=== PATIENT | male | born 1975 | race Caucasian/White ===

== ENCOUNTER 2018-08-04 12:58 | Emergency (ER) | payer OTHER ==
[~2018-08-04] VITALS: Ht 175.3 cm; Wt 77.1 kg
[2018-08-04 14:29] LABS: Basophils # (auto) 0.1 uL; Eosinophils # (auto) 0 uL; Eosinophils % (auto) 0.5 % (0.0-7.0); Mean Corpuscular Volume 99.7 fL (80.0-100.0); Monocytes # (auto) 0.3 uL; Nucleated Red Blood Cells % 0.2 %; White Blood Cell 4.5 10^3/uL (4.4-10.8)
[2018-08-04 14:33] LABS: Basophils % (auto) 2.3 % (0.0-2.0); Hematocrit 49.3 % (41.0-53.0); Hemoglobin 17.3 g/dL (13.5-17.5); Lymphocytes % (auto) 22.7 % (10.0-50.0); Mean Corpuscular Hgb Conc. 35.1 g/dL (32.0-36.0); Monocytes % (auto) 7.8 % (0.0-12.0); Neutrophils % (auto) 66.7 % (37.0-80.0); Platelet Count (auto) 164 10^3/uL (140-450); Red Blood Cells 4.95 10^6/uL (4.5-5.90); Red Cell Distribution Width 13.2 % (11.8-14.3)
[2018-08-04 14:46] LABS: Albumin 4.3 g/dL (3.4-5.0); BUN/Creatinine Ratio 12.3; Calcium 8.3 mg/dL (8.5-10.1); Potassium 3.7 mmol/L (3.5-5.1)
[2018-08-04 14:52] LABS: Amphetamine Screen, Urine NEGATIVE (NEGATIVE); Barbiturate Scree,Urine NEGATIVE (NEGATIVE); Benzodiazephine Screen, Urine NEGATIVE (NEGATIVE); Cannabinoid Screen, Urine POSITIVE (NEGATIVE); Cocaine Screen, Urine NEGATIVE (NEGATIVE); Opiate Scree,Urine NEGATIVE (NEGATIVE); Phencyclidine Screen, Urine NEGATIVE (NEGATIVE)
[2018-08-04 14:54] LABS: Urine Bacteria NONE SEEN /hpf (None Seen); Urine Blood Negative /uL (Negative); Urine Mucus FEW (None Seen); Urine Specific Gravity 1.009 (1.001-1.035); Urine WBC <1 /hpf (0 - 3)
[2018-08-04 15:00] LABS: Bilirubin, Total 0.7 mg/dL (0.2-1.0); Total Protein 8.3 g/dL (6.4-8.2)
[2018-08-04] MEDS: SODIUM CHLORIDE 0.9% 1,000 ML IV ONE ×3 (15:01→17:02)
[2018-08-04] MEDS: THIAMINE 100mg/ml INJ (200mg/2ml VIAL) IV ONE (15:08)
[2018-08-04] MEDS: chlordiazePOXIDE HCL 5 MG CAP PO ONE (15:08)
[2018-08-04 17:08] VITALS: BP 128/72
== END 2018-08-04 17:30 | disposition home or self-care (01) ==
LOC: ER 12:58
DX: F10.120 Alcohol abuse with intoxication, uncomplicated (principal); F17.210 Nicotine dependence, cigarettes, uncomplicated; F12.10 Cannabis abuse, uncomplicated
CPT/HCPCS: 36415; 80053; 80307; 80320; 81001; 85025; 93005; 94761; 96374; 99285; J3411; J7030

== ENCOUNTER 2021-10-15 14:43 | Emergency (ER) | payer MEDICAID ==
[~2021-10-15] VITALS: Ht 177.8 cm; Wt 79.4 kg
[2021-10-15 15:23] VITALS: BP 145/100
[2021-10-15] MEDS ORDERED: LORazepam 2MG/ML-1ML VIAL IV ONE (15:45)
[2021-10-15] MEDS ORDERED: SODIUM CHLORIDE 0.9% 1,000 ML IV ONE (15:45)
[2021-10-15] MEDS ORDERED: ONDANSETRON HCL 4 MG/2 ML VIAL IV ONE (15:45)
[2021-10-15 17:24] LABS: Albumin 4.7 g/dL (3.4-5.0); Calcium 8.8 mg/dL (8.5-10.1)
[2021-10-15 17:27] LABS: Bilirubin, Total 0.6 mg/dL (0.2-1.0); Total Protein 7.9 g/dL (6.4-8.2)
== END 2021-10-15 18:48 | disposition home or self-care (01) ==
LOC: ER 14:43
DX: F10.230 Alcohol dependence with withdrawal, uncomplicated (principal); F17.210 Nicotine dependence, cigarettes, uncomplicated; Z20.822 Contact with and (suspected) exposure to COVID-19; Y90.8 Blood alcohol level of 240 mg/100 ml or more
CPT/HCPCS: 36415; 80053; 80320; 87426; 96361; 96374; 96375; 99284; J2060; J2405; J7030

== ENCOUNTER 2022-06-04 17:08 | Emergency (ER) | payer MEDICAID ==
[~2022-06-04] VITALS: Ht 177.8 cm; Wt 81.0 kg
[2022-06-04 18:05] LABS: Basophils # (auto) 0.1 10 ^3/uL (0-0.2); Eosinophils # (auto) 0 10 ^3/uL (0-0.8); Eosinophils % (auto) 0.1 % (0.0-7.0); Hematocrit 47.7 % (41.0-53.0); Hemoglobin 15.9 g/dL (13.5-17.5); Lymphocytes # (auto) 1.6 10 ^3/uL (0.4-5.4); Lymphocytes % (auto) 17.3 % (10.0-50.0); Mean Corpuscular Hemoglobin 31.4 pg (28.0-32.0); Mean Corpuscular Hgb Conc. 33.3 g/dL (32.0-36.0); Mean Corpuscular Volume 94.3 fL (80.0-100.0); Monocytes # (auto) 0.8 10 ^3/uL (0-1.3); Monocytes % (auto) 8.2 % (0.0-12.0); Neutrophils # (auto) 6.9 10 ^3/uL (1.6-8.6); Neutrophils % (auto) 73.4 % (37.0-80.0); Red Blood Cells 5.06 10^6/uL (4.5-5.90); Red Cell Distribution Width 12.9 % (11.8-14.3); White Blood Cell 9.4 10^3/uL (4.4-10.8)
[2022-06-04 18:25] LABS: Albumin 4.9 g/dL (3.4-5.0); BUN/Creatinine Ratio 20.3; Calcium 10.1 mg/dL (8.5-10.1); Potassium 3.6 mmol/L (3.5-5.1)
[2022-06-04 18:36] LABS: Bilirubin, Total 1.5 mg/dL (0.2-1.0); Total Protein 8.1 g/dL (6.4-8.2)
[2022-06-04] MEDS ORDERED: chlordiazePOXIDE HCL 25 MG CAP PO ONE (21:45)
[2022-06-04] MEDS ORDERED: SODIUM CHLORIDE 0.9% 1,000 ML IV ONE (21:45)
[2022-06-05] MEDS ORDERED: CHL10C PO (00:57)
[2022-06-05 01:01] VITALS: BP 108/78
== END 2022-06-05 01:01 | disposition home or self-care (01) ==
LOC: ER 17:08
DX: F10.239 Alcohol dependence with withdrawal, unspecified (principal); F17.210 Nicotine dependence, cigarettes, uncomplicated; F12.10 Cannabis abuse, uncomplicated
CPT/HCPCS: 36415; 71045; 80053; 84484; 85025; 93005; 96360; 99285; J7030

== ENCOUNTER 2022-10-14 09:11 | Inpatient (IN) | payer MEDICAID ==
[~2022-10-14] VITALS: Ht 175.3 cm; Wt 84.3 kg
[~2022-10-14 09:11] MED LIST: CHL10C PO
[2022-10-14 10:28] LABS: Urine Bacteria FEW /hpf (None Seen); Urine Blood Negative /uL (Negative); Urine Hyaline Cast MANY /lpf (0 - 2); Urine Mucus FEW (None Seen); Urine WBC 5 /hpf (0 - 3)
[2022-10-14] MEDS ORDERED: cefTRIAXone 1GM/50ML D5W 50 ML IV ONE (13:30)
[2022-10-14] MEDS ORDERED: AZITHROMYCIN 500MG/ 250ML 250 ML IV ONE (13:30)
[2022-10-14 13:45] LABS: Hematocrit 45.5 % (41.0-53.0); Hemoglobin 15.8 g/dL (13.5-17.5); Mean Corpuscular Hemoglobin 32.9 pg (28.0-32.0); Mean Corpuscular Hgb Conc. 34.8 g/dL (32.0-36.0); Mean Corpuscular Volume 94.6 fL (80.0-100.0); Red Blood Cells 4.81 10^6/uL (4.5-5.90); Red Cell Distribution Width 13.4 % (11.8-14.3); White Blood Cell 24.3 10^3/uL (4.4-10.8)
[2022-10-14 13:57] LABS: Basophils % (manual) 0 (0.0-2.0); Blast Cells 0; Eosinophils % (manual) 0 (0-7); Metamyelocytes % 0; Myelocytes % 0; Promyelocytes % 0; Reactive Lymphocytes 0
[2022-10-14 14:06] LABS: Albumin 2.3 g/dL (3.4-5.0); Calcium 7.9 mg/dL (8.5-10.1); Potassium 4.5 mmol/L (3.5-5.1)
[2022-10-14 14:11] LABS: BUN/Creatinine Ratio 29.2; Bilirubin, Total 0.6 mg/dL (0.2-1.0); Total Protein 6.3 g/dL (6.4-8.2)
[2022-10-14] MEDS ORDERED: CLON0.5T10 PO (14:58)
[2022-10-14] MEDS ORDERED: LISI-716 PO (14:58)
[2022-10-14] MEDS ORDERED: CHLORDIAZEPOXIDE HCL PO SCH (15:00)
[2022-10-14] MEDS ORDERED: SODIUM CHLORIDE 0.9% 2,300 ML IV ONE (15:00)
[2022-10-14] MEDS ORDERED: MORPHINE SULFATE INJ 2 MG/ml SYRG IV PRN (16:00)
[2022-10-14] MEDS ORDERED: HYDROcodone-ACET 5/325MG TAB PO PRN (16:00)
[2022-10-14] MEDS ORDERED: NITROGLYCERIN 0.4 MG SL TAB SL PRN (16:00)
[2022-10-14] MEDS ORDERED: ONDANSETRON HCL 4 MG/2 ML VIAL IV PRN ×2 (16:00→16:30)
[2022-10-14] MEDS ORDERED: ACETAMINOPHEN 325 MG TAB PO PRN (16:00)
[2022-10-14 16:05] LABS: Band Neutrophils % (manual) 76; Lymphocytes % (manual) 4 (10.0-50.0); Monocytes % (manual) 3 (0-12)
[2022-10-14] MEDS ORDERED: ENOXAPARIN SOD 100 MG/1 ML SYRINGE SC ONE (16:15)
[2022-10-14] MEDS ORDERED: metroNIDAZOLE 500MG/100ML 100 ML IV ONE (16:30)
[2022-10-14] MEDS ORDERED: hydrALAZINE HCL 20 MG/ML VL IV PRN (17:00)
[2022-10-14 17:08] LABS: INR 1.28 (0.9-1.15); Partial Thromboplastin Time 39.1 sec (24.6-33.4)
[2022-10-14 17:37] LABS: Blood Alcohol < 3.0 mg/dL (0-5); Cholesterol 62 mg/dL (< 200); Triglycerides 175 mg/dL (< 150)
[2022-10-14 17:40] LABS: HDL Cholesterol 10 mg/dL (40-59); LDL Cholesterol 16 mg/dL (< 100)
[2022-10-14 17:40] LABS: Lactic Acid w/Reflex 2.6 mmol/L (0.4-2.0)
[2022-10-14] MEDS: AZITHROMYCIN 500MG/ 250ML 250 ML IV SCH (19:04)
[2022-10-14] MEDS: SODIUM CHLORIDE 0.9% 1,000 ML IV SCH ×2 (21:10→22:53)
[2022-10-14] MEDS: MORPHINE SULFATE INJ 2 MG/ml SYRG IV PRN (21:22)
[2022-10-14 22:40] VITALS: BP 102/74
[2022-10-14] MEDS: metroNIDAZOLE 500MG/100ML 100 ML IV SCH (22:52)
[2022-10-15 05:00] VITALS: BP 95/65
[2022-10-15] MEDS: metroNIDAZOLE 500MG/100ML 100 ML IV SCH ×3 (05:19→21:19)
[2022-10-15 06:12] LABS: Albumin 1.8 g/dL (3.4-5.0)
[2022-10-15 06:39] LABS: Basophils # (auto) 0.1 10 ^3/uL (0-0.2); Basophils % (auto) 0.7 % (0.0-2.0); Eosinophils # (auto) 0 10 ^3/uL (0-0.8); Eosinophils % (auto) 0.2 % (0.0-7.0); Hematocrit 40.5 % (41.0-53.0); Hemoglobin 13.7 g/dL (13.5-17.5); Lymphocytes # (auto) 0.4 10 ^3/uL (0.4-5.4); Lymphocytes % (auto) 2.5 % (10.0-50.0); Mean Corpuscular Hemoglobin 32.4 pg (28.0-32.0); Mean Corpuscular Volume 95.4 fL (80.0-100.0); Monocytes # (auto) 0.8 10 ^3/uL (0-1.3); Monocytes % (auto) 4.7 % (0.0-12.0); Neutrophils % (auto) 91.9 % (37.0-80.0); Red Blood Cells 4.24 10^6/uL (4.5-5.90); White Blood Cell 17.4 10^3/uL (4.4-10.8)
[2022-10-15 06:56] LABS: BUN/Creatinine Ratio 47.1; Bilirubin, Total 0.5 mg/dL (0.2-1.0); Potassium 3.9 mmol/L (3.5-5.1); Total Protein 6.2 g/dL (6.4-8.2)
[2022-10-15] MEDS: SODIUM CHLORIDE 0.9% 1,000 ML IV SCH ×3 (08:40→23:18)
[2022-10-15 08:47] VITALS: BP 106/68
[2022-10-15] MEDS: THIAMINE HCL 100 MG TAB PO SCH (10:00)
[2022-10-15] MEDS: MULTIPLE VITAMIN TAB PO SCH (10:01)
[2022-10-15 13:00] VITALS: BP 112/81
[2022-10-15] MEDS: MORPHINE SULFATE INJ 2 MG/ml SYRG IV PRN ×2 (14:22→20:15)
[2022-10-15 17:00] VITALS: BP 106/74
[2022-10-15] MEDS: AZITHROMYCIN 500MG/ 250ML 250 ML IV SCH (17:49)
[2022-10-15 22:00] VITALS: BP 113/77
[2022-10-16 05:00] VITALS: BP 127/80
[2022-10-16] MEDS: metroNIDAZOLE 500MG/100ML 100 ML IV SCH (05:33)
[2022-10-16 08:35] VITALS: BP 121/79
[2022-10-16] MEDS: THIAMINE HCL 100 MG TAB PO SCH (09:25)
[2022-10-16] MEDS: MULTIPLE VITAMIN TAB PO SCH (09:25)
[2022-10-16] MEDS: SODIUM CHLORIDE 0.9% 1,000 ML IV SCH (09:25)
[2022-10-16] MEDS ORDERED: ALBUAER3 IN (10:49)
[2022-10-16] MEDS ORDERED: AZIT250T PO (10:49)
[2022-10-16 12:40] VITALS: BP 130/86
[2022-10-16 14:41] VITALS: BP 130/86
[2022-10-16] MEDS ORDERED: AZITHROMYCIN 250 MG TAB PO SCH (17:00)
== END 2022-10-16 15:57 | disposition home or self-care (01) | DRG 139 ==
LOC: EDBD 09:11 → ER 09:11 → TELE 16:04 → TELE-CENTR 22:30
PROVIDERS: ADMIT Registered Nurse; ATTEND Internal Medicine
DX: J18.9 Pneumonia, unspecified organism (principal); E43 Unspecified severe protein-calorie malnutrition; N17.9 Acute kidney failure, unspecified; K70.30 Alcoholic cirrhosis of liver without ascites; I10 Essential (primary) hypertension; R19.7 Diarrhea, unspecified; F41.9 Anxiety disorder, unspecified; R79.89 Other specified abnormal findings of blood chemistry; Z20.822 Contact with and (suspected) exposure to COVID-19; Z71.41 Alcohol abuse counseling and surveillance of alcoholic; Z68.25 Body mass index [BMI] 25.0-25.9, adult
CPT/HCPCS: 36415; 36600; 71046; 74176; 78582; 80053; 80061; 80320; 81001; 82270; 82805; 83036; 83605; 84443; 84484; 85007; 85025; 85027; 85379; 85610; 85730; 87040; 87045; 87070; 87086; 87205; 87426; 87427; 87493; 87804; 96365; 96368; G0378; J0696; J3490

== ENCOUNTER 2023-06-21 15:18 | Inpatient (IN) | payer MEDICAID ==
[~2023-06-21] VITALS: Ht 175.3 cm; Wt 79.5 kg
[~2023-06-21 15:18] MED LIST changes: +ALBUAER3 IN; +AZIT-74 PO; +CLON0.5T4 PO; +LISI10TA34 PO
[2023-06-21 15:42] LABS: Basophils # (auto) 0.1 10 ^3/uL (0-0.2); Basophils % (auto) 1.8 % (0.0-2.0); Eosinophils # (auto) 0.1 10 ^3/uL (0-0.8); Eosinophils % (auto) 0.9 % (0.0-7.0); Hematocrit 44.7 % (41.0-53.0); Hemoglobin 15.6 g/dL (13.5-17.5); Lymphocytes # (auto) 3.1 10 ^3/uL (0.4-5.4); Mean Corpuscular Hemoglobin 33.5 pg (28.0-32.0); Mean Corpuscular Hgb Conc. 34.8 g/dL (32.0-36.0); Mean Corpuscular Volume 96.2 fL (80.0-100.0); Monocytes # (auto) 0.3 10 ^3/uL (0-1.3); Monocytes % (auto) 4.2 % (0.0-12.0); Neutrophils # (auto) 3.4 10 ^3/uL (1.6-8.6); Neutrophils % (auto) 48.1 % (37.0-80.0); Nucleated Red Blood Cells % 0.1 %; Red Blood Cells 4.65 10^6/uL (4.5-5.90); Red Cell Distribution Width 12.6 % (11.8-14.3)
[2023-06-21 15:57] LABS: INR 0.98 (0.9-1.15); Partial Thromboplastin Time 25.4 SEC (24.5-34.5); Prothrombin Time 10.3 sec (9.3-11.8)
[2023-06-21 16:09] VITALS: PULSE 90; RESP 26; O2SAT 95
[2023-06-21 16:17] LABS: Alanine Aminotransferase 37 U/L (7-40); Albumin 4.5 g/dL (3.2-4.8); Alkaline Phosphatase 82 U/L (46-116); Anion Gap 13.9 (5-15); Aspartate Aminotransferase 83 U/L (13-40); BUN/Creatinine Ratio 12.2 (10.0-20.0); Bilirubin, Total 0.5 mg/dL (0.2-1.0); Blood Urea Nitrogen 10 mg/dL (9-23); Calcium 8.6 mg/dL (8.5-10.1); Carbon Dioxide 21.1 mmol/L (20-30); Chloride 104 mmol/L (98-107); Glucose 106 mg/dL (74-106); Magnesium 1.9 mg/dL (1.6-2.6); Potassium 3.7 mmol/L (3.5-5.1); Sodium 139 mmol/L (136-145)
[2023-06-21] MEDS ORDERED: LORazepam 2MG/ML-1ML VIAL IV ONE ×2 (16:30→19:00)
[2023-06-21 16:38] LABS: Acetaminophen < 2.0 UG/ML (10.0-20.0)
[2023-06-21 16:41] LABS: Salicylate < 3.0 mg/dL (2.8-20.0)
[2023-06-21 17:02] LABS: Urine Bacteria NONE SEEN /hpf (None Seen); Urine Blood Negative /uL (Negative); Urine Clarity Clear (Clear); Urine Color Colorless (Yellow); Urine Protein, UAD Negative (Negative); Urine Specific Gravity 1.007 (1.001-1.035); Urine Urobilinogen Normal (Negative); Urine WBC <1 /hpf (0 - 3); Urine pH 5.5 (5.0-8.0)
[2023-06-21 17:21] LABS: Amphetamine Screen, Urine Neg (NEGATIVE); Barbiturate Scree,Urine Neg (NEGATIVE); Benzodiazephine Screen, Urine Neg (NEGATIVE); Cocaine Screen, Urine Neg (NEGATIVE); Opiate Scree,Urine Neg (NEGATIVE); Phencyclidine Screen, Urine Neg (NEGATIVE)
[2023-06-21 17:22] LABS: Cannabinoid Screen, Urine Neg (NEGATIVE)
[2023-06-21] MEDS: LORazepam 2MG/ML-1ML VIAL IV SCH ×2 (19:00→22:52)
[2023-06-21] MEDS ORDERED: THIAMINE 100mg/ml INJ (200mg/2ml VIAL) IV ONE (19:00)
[2023-06-21] MEDS ORDERED: SODIUM CHLORIDE 0.9% 1,000 ML IVB ONE (19:00)
[2023-06-21] MEDS ORDERED: DOCUSATE SOD 100 MG CAP PO PRN (20:30)
[2023-06-21] MEDS ORDERED: HYDROcodone-ACET 5/325MG TAB PO PRN (20:30)
[2023-06-21] MEDS ORDERED: ONDANSETRON HCL 4 MG/2 ML VIAL IV PRN (20:30)
[2023-06-21] MEDS ORDERED: NITROGLYCERIN 0.4 MG SL TAB SL PRN (20:30)
[2023-06-21] MEDS ORDERED: MORPHINE SULFATE INJ 2 MG/ml SYRG IV PRN (20:30)
[2023-06-21] MEDS ORDERED: THIAMINE HCL 100 MG TAB PO ONE (20:39)
[2023-06-21] MEDS ORDERED: IBUPROFEN 600 MG TAB PO PRN (21:15)
[2023-06-21] MEDS ORDERED: TEMAZEPAM 15 MG CAP PO PRN (21:15)
[2023-06-21] MEDS: LORazepam 2MG/ML-1ML VIAL IV PRN (21:48)
[2023-06-21] MEDS: SODIUM CHLOR 0.9% PF (SALINE LOCK) 10ML VIAL/SYR IV SCH (22:38)
[2023-06-22] MEDS: LORazepam 2MG/ML-1ML VIAL IV SCH ×3 (02:46→11:43)
[2023-06-22] MEDS: SODIUM CHLOR 0.9% PF (SALINE LOCK) 10ML VIAL/SYR IV SCH (06:22)
[2023-06-22 07:26] LABS: Basophils # (auto) 0.1 10 ^3/uL (0-0.2); Eosinophils # (auto) 0.1 10 ^3/uL (0-0.8); Eosinophils % (auto) 1.8 % (0.0-7.0); Hematocrit 43.7 % (41.0-53.0); Hemoglobin 15.2 g/dL (13.5-17.5); Lymphocytes # (auto) 1.9 10 ^3/uL (0.4-5.4); Lymphocytes % (auto) 39.4 % (10.0-50.0); Mean Corpuscular Hemoglobin 33.2 pg (28.0-32.0); Mean Corpuscular Hgb Conc. 34.7 g/dL (32.0-36.0); Mean Corpuscular Volume 95.7 fL (80.0-100.0); Monocytes # (auto) 0.4 10 ^3/uL (0-1.3); Monocytes % (auto) 7.4 % (0.0-12.0); Neutrophils # (auto) 2.4 10 ^3/uL (1.6-8.6); Neutrophils % (auto) 48.4 % (37.0-80.0); Nucleated Red Blood Cells % 0.1 %; Red Blood Cells 4.57 10^6/uL (4.5-5.90); Red Cell Distribution Width 12.6 % (11.8-14.3); White Blood Cell 4.9 10^3/uL (4.4-10.8)
[2023-06-22 07:40] VITALS: PULSE 70; RESP 12; O2SAT 95
[2023-06-22 08:05] LABS: Alanine Aminotransferase 37 U/L (7-40); Alkaline Phosphatase 79 U/L (46-116); Anion Gap 11.8 (5-15); Calcium 8.8 mg/dL (8.5-10.1); Carbon Dioxide 22.2 mmol/L (20-30); Chloride 107 mmol/L (98-107); Potassium 3.8 mmol/L (3.5-5.1); Sodium 141 mmol/L (136-145)
[2023-06-22 08:06] LABS: Aspartate Aminotransferase 77 U/L (13-40); Glucose 80 mg/dL (74-106)
[2023-06-22 08:07] LABS: BUN/Creatinine Ratio 13.2 (10.0-20.0); Blood Urea Nitrogen 10 mg/dL (9-23)
[2023-06-22 08:08] LABS: Albumin 4.3 g/dL (3.2-4.8)
[2023-06-22 08:09] LABS: Bilirubin, Total 0.8 mg/dL (0.2-1.0); Total Protein 6.8 g/dL (5.7-8.2)
[2023-06-22] MEDS: LORazepam 2MG/ML-1ML VIAL IV PRN (08:42)
[2023-06-22] MEDS ORDERED: FOLIC ACID 1 MG TAB PO SCH (10:00)
[2023-06-22] MEDS ORDERED: THIAMINE HCL 100 MG TAB PO SCH (10:00)
[2023-06-22 10:49] VITALS: BP 129/80; PULSE 86; RESP 16; TEMP 98.6; O2SAT 95
[2023-06-22] MEDS ORDERED: FOLIC ACID 1 MG, MULTIPLE VITAMIN 10 ML, MAGNESIUM SULF SDV 50% 8 MEQ, THIAMINE INJ 100... INJ SCH ×5 (12:00)
== END 2023-06-22 12:25 | disposition left against medical advice (07) | DRG 203 ==
LOC: EDUNIT# 15:18 → EDBD 15:18 → ER 15:18 → TELE 20:30
PROVIDERS: ADMIT Nurse Practitioner Family; ATTEND Nurse Practitioner Family
DX: R07.89 Other chest pain (principal); R45.851 Suicidal ideations; F10.139 Alcohol abuse with withdrawal, unspecified; F10.129 Alcohol abuse with intoxication, unspecified; F41.0 Panic disorder [episodic paroxysmal anxiety]; I10 Essential (primary) hypertension; Y90.8 Blood alcohol level of 240 mg/100 ml or more; Z53.29 Procedure and treatment not carried out because of patient's decision for other reasons; Z80.9 Family history of malignant neoplasm, unspecified
CPT/HCPCS: 36415; 71045; 80053; 80307; 80320; 80329; 81001; 83690; 83735; 83880; 84484; 85025; 85610; 85730; 93005; G0378